=== PATIENT | female | born 1970 | race Caucasian/White ===

== ENCOUNTER 2017-01-07 10:06 | Emergency (ER) | payer SELFPAY ==
[~2017-01-07] VITALS: Ht 180.3 cm; Wt 104.0 kg
[~2017-01-07 10:06] MED LIST: ABILIFY15 MG PO; ADVIL200 MG PO; DOXYCYCLINE HY100 MG PO; LAMOTRIGINE150 MG PO; PRISTIQ100 MG PO; PROTONIX40 MG PO; TRILEPTAL300 MG PO; WELLBUTRIN XL300 MG PO
[2017-01-07 13:34] VITALS: BP 112/73
== END 2017-01-07 13:37 | disposition home or self-care (01) ==
LOC: EME 10:06
DX: E11.622 Type 2 diabetes mellitus with other skin ulcer (principal); L97.229 Non-pressure chronic ulcer of left calf with unspecified severity; W01.190A Fall on same level from slipping, tripping and stumbling with subsequent striking against furniture, initial encounter; Y93.E5 Activity, floor mopping and cleaning; Y92.009 Unspecified place in unspecified non-institutional (private) residence as the place of occurrence of the external cause; E78.5 Hyperlipidemia, unspecified; Z86.73 Personal history of transient ischemic attack (TIA), and cerebral infarction without residual deficits; Z88.0 Allergy status to penicillin; Z87.891 Personal history of nicotine dependence
CPT/HCPCS: 99281; 99284

== ENCOUNTER 2017-03-12 12:42 | Emergency (ER) | payer OTHER ==
[~2017-03-12] VITALS: Ht 180.3 cm; Wt 110.0 kg
[~2017-03-12 12:42] MED LIST changes: +CLEOCIN300 MG PO
[2017-03-12 13:38] LABS: HEMOGLOBIN 11.9 G/DL (11.9-15.5); MCH 26.9 PG (29.0-34.0); MCHC 32.2 G/DL (30.0-36.0); MCV 83.5 FL (83-99); PLATELET COUNT 317 K/uL (156-360); RBC DIS.WIDTH-CV 12.9 % (11.8-14.6); RBC DIS.WIDTH-SD 39.2 % (39-53); RED BLOOD COUNT 4.43 M/uL (3.80-5.20); WHITE BLOOD COUNT 4.6 K/uL (4.1-10.2)
[2017-03-12 13:49] LABS: ALBUMIN 4.4 g/dL (3.2-4.8)
[2017-03-12 13:50] LABS: CHLORIDE 102 mEq/L (99-109); POTASSIUM 4.1 mEq/L (3.7-5.4); SODIUM 138 mEq/L (136-147)
[2017-03-12 13:52] LABS: GLUCOSE 98 mg/dL (70-99); TOTAL PROTEIN 8.3 g/dL (6.4-8.3)
[2017-03-12 13:54] LABS: TOTAL BILIRUBIN 0.2 mg/dL (0.0-1.0)
[2017-03-12 13:55] LABS: ALKALINE PHOSPHATASE 98 IU/L (3-129)
[2017-03-12 13:56] LABS: GFR ESTIMATE (CALCULATED) > 59 mL/min/
[2017-03-12 13:57] LABS: AST (GOT) 17 IU/L (2-34); UREA NITROGEN (BUN) 19 mg/dL (9-23)
[2017-03-12 13:59] LABS: ALT (GPT) 24 IU/L (3-49); LIPASE 25 U/L (1.0-51.0); TROP-I INTERPRETATION NEGATIVE; TROPONIN-I < 0.01 ng/mL (0.0-0.30)
[2017-03-12] MEDS ORDERED: ZOFRAN4 MG PO (14:21)
[2017-03-12] MEDS ORDERED: PEPCID20 MG PO (14:21)
[2017-03-12 14:51] VITALS: BP 133/76
== END 2017-03-12 14:51 | disposition left against medical advice (07) ==
LOC: EME 12:42
PROVIDERS: Physician Assistant
DX: R10.13 Epigastric pain (principal); E78.5 Hyperlipidemia, unspecified; E11.9 Type 2 diabetes mellitus without complications; F41.9 Anxiety disorder, unspecified; F32.9 Major depressive disorder, single episode, unspecified; Z87.891 Personal history of nicotine dependence; Z86.73 Personal history of transient ischemic attack (TIA), and cerebral infarction without residual deficits; Z90.49 Acquired absence of other specified parts of digestive tract; Z90.89 Acquired absence of other organs; Z90.710 Acquired absence of both cervix and uterus; Z88.0 Allergy status to penicillin; Z88.1 Allergy status to other antibiotic agents
CPT/HCPCS: 71020; 74176; 80053; 81003; 83690; 84484; 85027; 93005; 99281; 99285

== ENCOUNTER 2017-03-18 11:25 | Emergency (ER) | payer OTHER ==
[~2017-03-18] VITALS: Ht 180.3 cm; Wt 112.7 kg
[~2017-03-18 11:25] MED LIST changes: +PEPCID20 MG PO; +ZOFRAN4 MG PO
[2017-03-18 12:21] LABS: HEMATOCRIT 36.1 % (36.0-46.0); HEMOGLOBIN 11.4 G/DL (11.9-15.5); MCH 26.5 PG (29.0-34.0); MCHC 31.6 G/DL (30.0-36.0); PLATELET COUNT 284 K/uL (156-360); RBC DIS.WIDTH-CV 13.2 % (11.8-14.6); RBC DIS.WIDTH-SD 40.3 % (39-53); WHITE BLOOD COUNT 6.1 K/uL (4.1-10.2)
[2017-03-18 12:41] LABS: CHLORIDE 107 mEq/L (99-109); POTASSIUM 4.1 mEq/L (3.7-5.4); SODIUM 142 mEq/L (136-147)
[2017-03-18 12:43] LABS: GLUCOSE 106 mg/dL (70-99)
[2017-03-18 12:47] LABS: CREATININE 0.8 mg/dL (0.6-1.3); GFR ESTIMATE (CALCULATED) > 59 mL/min/
[2017-03-18 12:48] LABS: UREA NITROGEN (BUN) 17 mg/dL (9-23)
[2017-03-18] MEDS ORDERED: DOXYCYCLINE HY100 MG PO (14:22)
[2017-03-18] MEDS ORDERED: BACTRIM,SEPT1 TABLET PO (14:22)
[2017-03-18 15:17] VITALS: BP 126/73
[2017-03-19] MEDS ORDERED: ABILIFY10 MG PO (11:30)
[2017-03-19] MEDS ORDERED: TRILEPTAL150 MG PO (11:30)
[2017-03-19] MEDS ORDERED: PRISTIQ50 MG PO (11:31)
[2017-03-19] MEDS ORDERED: WELLBUTRIN XL150 MG PO (11:31)
[2017-03-19] MEDS ORDERED: ADVIL200 MG PO (11:32)
[2017-03-19] MEDS ORDERED: LAMICTAL150 M1 PO (11:32)
== END 2017-03-18 14:49 | disposition home or self-care (01) ==
LOC: EME 11:25
DX: S81.832A Puncture wound without foreign body, left lower leg, initial encounter (principal); L03.116 Cellulitis of left lower limb; Z87.891 Personal history of nicotine dependence; Z88.0 Allergy status to penicillin; Z88.1 Allergy status to other antibiotic agents; W60.XXXA Contact with nonvenomous plant thorns and spines and sharp leaves, initial encounter
CPT/HCPCS: 71046; 80048; 85027; 99281; 99284

== ENCOUNTER 2017-03-19 02:38 | Observation (INO) | payer OTHER ==
[~2017-03-19] VITALS: Ht 180.3 cm; Wt 109.1 kg
[~2017-03-19 02:38] MED LIST changes: +BACTRIM,SEPT1 TABLET PO
[2017-03-19 03:37] LABS: BASOPHIL (%) 0.3 % (0-1); EOSINOPHIL (%) 0 % (0-5); HEMOGLOBIN 10.9 G/DL (11.9-15.5); IMMATURE GRANULOCYTE (%) 0.3 % (0.0-0.7); LYMPHOCYTE (%) 25.8 % (15-42); LYMPHOCYTE COUNT 1.6 K/uL (1.0-2.8); MCH 26.7 PG (29.0-34.0); MCHC 32.1 G/DL (30.0-36.0); MCV 83.3 FL (83-99); MONOCYTE (%) 10.1 % (3-12); MONOCYTE COUNT 0.6 K/uL (0-0.8); NEUTROPHIL (%) 63.5 % (45-76); NEUTROPHIL COUNT 3.8 K/uL (1.8-6.4); PLATELET COUNT 276 K/uL (156-360); RBC DIS.WIDTH-CV 13.1 % (11.8-14.6); RBC DIS.WIDTH-SD 39.8 % (39-53); RED BLOOD COUNT 4.08 M/uL (3.80-5.20)
[2017-03-19 03:45] LABS: ALBUMIN 3.8 g/dL (3.2-4.8); CHLORIDE 105 mEq/L (99-109); POTASSIUM 3.9 mEq/L (3.7-5.4); SODIUM 141 mEq/L (136-147)
[2017-03-19 03:48] LABS: GLUCOSE 109 mg/dL (70-99); TOTAL PROTEIN 7.3 g/dL (6.4-8.3)
[2017-03-19 03:50] LABS: TOTAL BILIRUBIN 0.2 mg/dL (0.0-1.0)
[2017-03-19 03:51] LABS: ALKALINE PHOSPHATASE 84 IU/L (3-129); CREATININE 0.8 mg/dL (0.6-1.3); GFR ESTIMATE (CALCULATED) > 59 mL/min/
[2017-03-19 03:52] LABS: UREA NITROGEN (BUN) 18 mg/dL (9-23)
[2017-03-19 03:53] LABS: AST (GOT) 17 IU/L (2-34)
[2017-03-19 03:54] LABS: ALT (GPT) 22 IU/L (3-49)
[2017-03-19 03:58] LABS: TROP-I INTERPRETATION NEGATIVE; TROPONIN-I < 0.01 ng/mL (0.0-0.30)
[2017-03-19 04:41] LABS: HDL CHOLESTEROL 51 MG/DL (Desirable>=50); LDL CHOLESTEROL 105 mg/dL (Desirable<100); NON-HDL CHOLESTEROL 135 mg/dL (Desirable<160); TOTAL CHOLESTEROL 186 mg/dL (Desirable<200); TRIGLYCERIDES 149 MG/DL (Normal: <150)
[2017-03-19 06:51] LABS: Estimated Average Glucose 140 mg/dL (70-123); HEMOGLOBIN A1c (GLYCOHEMOGLOB) 6.5 % HGB (Below 5.7)
[2017-03-19 07:30] LABS: APPEARANCE SL.HAZY ((CLEAR)); BILIRUBIN NEGATIVE; BLOOD NEGATIVE; COLOR YELLOW ((YELLOW)); GLUCOSE (STRIP) NEGATIVE; KETONES NEGATIVE; LEUKOCYTES TRACE; NITRITE NEGATIVE; PROTEIN (STRIP) 30; SPECIFIC GRAVITY 1.031 (1.000-1.030); UROBILINOGEN 0.2 MG/DL (0.2-1.0)
[2017-03-19 08:00] LABS: BACTERIA RARE /HPF; EPITHELIAL CELLS 2+ /HPF; MUCUS NONE SEEN /LPF; RED BLOOD CELLS 0-5 /HPF (0-5); UCUL ADDED? NO; WHITE BLOOD CELLS 0-5 /HPF (0-5)
[2017-03-19] MEDS ORDERED: ABILIFY10 MG PO (11:30)
[2017-03-19] MEDS ORDERED: TRILEPTAL150 MG PO (11:30)
[2017-03-19] MEDS ORDERED: PRISTIQ50 MG PO (11:31)
[2017-03-19] MEDS ORDERED: WELLBUTRIN XL150 MG PO (11:31)
[2017-03-19] MEDS ORDERED: LAMICTAL150 M1 PO (11:32)
[2017-03-19] MEDS ORDERED: ADVIL200 MG PO (11:32)
[2017-03-19 12:11] LABS: TROP-I INTERPRETATION NEGATIVE; TROPONIN-I < 0.01 ng/mL (0.0-0.30)
[2017-03-19 15:45] VITALS: BP 125/79
[2017-03-19 16:38] LABS: TROP-I INTERPRETATION NEGATIVE; TROPONIN-I < 0.01 ng/mL (0.0-0.30)
[2017-03-20 04:44] VITALS: BP 111/53
[2017-03-20 07:38] VITALS: BP 116/55
[2017-03-20 11:47] VITALS: BP 137/58
[2017-03-20] MEDS ORDERED: ATORVASTATIN CA40 MG PO (15:27)
[2017-03-20] MEDS ORDERED: ASPIR-LOW81 MG PO (15:27)
[2017-03-20] MEDS ORDERED: CLEOCIN300 MG PO (15:28)
[2017-03-20] MEDS ORDERED: KEFLEX500 MG PO (15:29)
[2017-03-20 16:15] VITALS: BP 114/55
[2017-03-20] MEDS ORDERED: TRAMADOL HCL50 MG PO (16:20)
== END 2017-03-20 17:20 | disposition home or self-care (01) ==
LOC: EME 02:38 → EDOF 07:51 → 5WEST 07:51 → EDOF 07:51 → ENRESERV 08:08 → 5WEST 15:33
PROVIDERS: Emergency Medicine; Internal Medicine
PROC: 0JDP0ZZ Extraction of Left Lower Leg Subcutaneous Tissue and Fascia, Open Approach (ICD-10-PCS; principal; 2017-03-20)
DX: L03.116 Cellulitis of left lower limb (principal); M79.5 Residual foreign body in soft tissue; L02.416 Cutaneous abscess of left lower limb; R20.0 Anesthesia of skin; Z86.73 Personal history of transient ischemic attack (TIA), and cerebral infarction without residual deficits; E11.9 Type 2 diabetes mellitus without complications; G25.0 Essential tremor; F32.9 Major depressive disorder, single episode, unspecified; F41.9 Anxiety disorder, unspecified; K21.9 Gastro-esophageal reflux disease without esophagitis; E78.5 Hyperlipidemia, unspecified; D64.9 Anemia, unspecified; E66.3 Overweight; Z90.49 Acquired absence of other specified parts of digestive tract; Z90.710 Acquired absence of both cervix and uterus; Z88.0 Allergy status to penicillin; Z88.1 Allergy status to other antibiotic agents; Z91.013 Allergy to seafood
CPT/HCPCS: 70450; 70551; 73590; 76882; 80053; 80061; 81003; 82948; 83036; 83605; 84484; 85025; 87040; 87070; 87075; 87077; 87147; 87186; 87205; 88300; 93005; 93880; 99281; 99285; G0378; J0690; J1170; J1885; J2250; J2405; J3010; J3370; J7030; J7050; S0020